=== PATIENT | male | born 1990 | race Caucasian/White ===

== ENCOUNTER → 2017-06-25 | Outpatient (CLI) | payer OTHER ==
--- NOTE | 2017-06-25 22:11 | MR ---
EXAMINATION TYPE: MR knee LT wo con DATE OF EXAM: 06/25/2017 COMPARISON: NONE HISTORY: Lt knee pain/injury 1 mo ago TECHNIQUE: Multiplanar, multisequence images of the knee is performed without IV contrast. FINDINGS: MEDIAL MENISCUS: Anterior horn is intact without tear. There is globular increased signal posterior h orn medial meniscus does appear to have some faint extension to the inferior articular surface sagitt al image 25. LATERAL MENISCUS: Anterior and posterior horns are intact without tear. CRUCIATE LIGAMENTS: The anterior and posterior cruciate ligaments are intact and unremarkable. COLLATERAL LIGAMENTS: The medial collateral ligament and lateral collateral ligament complex are inta ct and unremarkable. EXTENSOR MECHANISM: Visualized quadriceps and patellar tendons are intact. EFFUSION: No significant suprapatellar joint effusion. POPLITEAL CYST: There is a small popliteal/cohen cyst seen best sagittal image 24. TRICOMPARTMENT SPACES: Tricompartment joint spaces are preserved. No significant spurring is seen. CARTILAGE: Tricompartment articular cartilage is maintained. BONE MARROW SIGNAL: Some heterogeneity is present without suspicious edema. OTHER: No additional significant abnormality is appreciated. IMPRESSION: 1. At least intrasubstance tear but suspected full-thickness tear posterior horn of medial meniscus. No ligamentous tear is identified. Small popliteal cyst noted.
== END | disposition home or self-care (01) ==
LOC: RADMRIMAIN 18:43
PROVIDERS: ATTEND Family Medicine
DX: S83.242A Other tear of medial meniscus, current injury, left knee, initial encounter (principal); M71.22 Synovial cyst of popliteal space [Baker], left knee